=== PATIENT | female | born 1965 | race Caucasian/White ===

== ENCOUNTER 2016-11-12 20:33 | Emergency (ER) | payer SELFPAY ==
[2016-11-12] MEDS ORDERED: Ibuprofen 800 MG TAB ONE (21:02)
--- NOTE | 2016-11-12 21:36 | ERRECORD ---
[facility] EMERGENCY RECORD HPI GENERAL (20:57 LHOD) CHIEF COMPLAINT: Patient presents for evaluation of LOW BACK STRAIN AND SWELLING BEHIND LEFT KNEE. HISTORIAN: History provided by patient. TIME COURSE: PT REPORTS SHE LIFTS PATIENTS AND FREQUENTLY HAS LOW BACK PAINS, BUT CAME IN TONIGHT SINCE SHE NOTED A SWELLING BEHIND HER LEFT KNEE FOR THE PAST MONTH. SHE HAD A FAMILY MEMBER IN HER HOME THIS PAST WEEK, AND REPORTS SHE FEELS STRESSED. ROS (20:59 LHOD) CONSTITUTIONAL: Historian denies fever. CARDIOVASCULAR: Historian denies chest pain. RESPIRATORY: Historian denies shortness of breath. GI: Historian denies abdominal pain, denies nausea, denies vomiting. MUSCULOSKELETAL: Historian reports back pain, denies neck pain, reports spasms. SWELLING BEHIND LEFT KNEE. SKIN: Historian denies rash. NEUROLOGIC: Historian denies focal weakness, denies headache. HEMO/LYMPHATIC: Historian denies easy bruising. NOTES: All systems reviewed, negative except as described above. PAST MEDICAL HISTORY MEDICAL HISTORY: Flu vaccine not up to date, Tetanus immunization up to date, Date of immunization: 2012, Pneumococcal vaccine not up to date, SKIN CANCER REMOVED FROM TIP OF NOSE, Past medical history includes pulmonary disease, chronic bronchitis, ALLERGIES. VERIFIED 07/24/15-EER. VERIFIED 11-12-16. (21:09 MCRS) FEMALE SURGICAL HISTORY: nasal, Surgical history of tubal ligation. VERIFIED 07/24/15. VERIFIED 1. (21:09 MCRS) PSYCHIATRIC HISTORY: Psychiatric history includes, anxiety, Psychiatric history includes patient currently being under outpatient treatment. VERIFIED 11-12-16. (21:09 MCRS) SOCIAL HISTORY: Patient denies alcohol use, Patient denies drug use, Patient currently uses tobacco, smokes cigarettes, daily, Patient has smoked for 30 years, Patient smokes 1/2 packs per day, CUTTING BACK, Patient denies alcohol use, Patient denies drug use, Patient currently uses tobacco, smokes cigarettes, daily, Patient smokes 1 pack per day, Patient denies alcohol use, Patient denies drug use, Patient currently uses tobacco, smokes cigarettes, daily, Patient smokes 1 pack per day, Patient denies alcohol use, Patient denies drug use, Patient currently uses tobacco, smokes cigarettes, daily, Patient has smoked for 20 years, Patient smokes 1 pack per day, Lives at home, with family. (21:09 MCRS) FAMILY HISTORY: Family history includes malignancy, mother. (21:09 MCRS) NOTES: Nursing records reviewed, PT REPORTS HX OF BACK PAINS. I &a-1R&a+25V*p+0X*d6763S*c202B*c15G*c2P*p-0X&a-25V&a+1R Name: Jessica Rouse : 1965 F51 MedRec: [id number] AcctNum: [id number] Prepared: [facility] Nov 12, 2016 22:24 by Interface Page 1 of 3 pMD [facility] EMERGENCY RECORD PRESCRIBED ROBAXIN FOR HER PREVIOUSLY WHICH SHE REPORTS WORKED WELL ON HER MUSCLE SPASMS. (21:05 LHOD) KNOWN ALLERGIES codeine sulfate (Unconfirmed): Reaction: Nausea, Severity: Severe, Source: Patient CURRENT MEDICATIONS No recorded medications VITAL SIGNS VITAL SIGNS: BP: 136/62 (Sitting), Pulse: 98, Resp: 22, Temp: 98.9 (Tympanic), Pain: 6 (Radiating), O2 sat: 95 on Room Air, Time: 11/12/2016 20:40. (20:40 MCRS) BP: 163/93, Pulse: 89, Resp: 22, Temp: 98.5, Pain: 5, O2 sat: 96 on RA, Time: 11/12/2016 21:15. (21:15 MCRS) PHYSICAL EXAM (21:00 LHOD) CONSTITUTIONAL: Vital signs reviewed, Patient afebrile, Pulse normal, Blood pressure normal, Respiratory rate normal, Patient alert and oriented to person, place and time. NECK: Neck exam included findings of normal range of motion, Trachea midline. RESPIRATORY CHEST: Respiratory exam included findings of no respiratory distress, Breath sounds clear. CARDIOVASCULAR: Cardiovascular exam included findings of heart rate regular rate and rhythm, Heart sounds normal. ABDOMEN FEMALE: Abdominal exam included findings of abdomen nontender, Distension present. BACK: Tenderness, paraspinal to the lower back, no pain with straight leg raise. LOWER EXTREMITY: LEFT KNEE----POPLITEAL REGION WITH MODERATE SWELLING. NO EVIDENCE OF POPLITEAL ANEURYSM OR SEPTIC JOINT. NO ERYTHEMA OR STREAKING. LEFT LEG POPLITEAL CYST WITHOUT EVIDENCE OF DVT / TENDERNESS. NEURO: Neuro exam findings include patient oriented to person, place and time, Speech normal. SKIN: no rash. MEDICATION ADMINISTRATION SUMMARY Drug Name: ibuprofen, Dose Ordered: 800 mg, Route: Oral, Status: Ordered, Time: 20:54 11/12/2016, Detailed record available in Medication Service section. PROBLEM LIST No recorded problems DIAGNOSIS (20:55 LHOD) FINAL: PRIMARY: LUMBAR STRAIN WITH MUSCLE SPASM, &a-1R&a+25V*p+0X*u9578S*c202B*c15G*c2P*p-0X&a-25V&a+1R Name: Jessica Rouse : 1965 F51 MedRec: [id number] AcctNum: [id number] Prepared: Pat Nov 12, 2016 22:24 by Interface Page 2 of 3 pMD [facility] EMERGENCY RECORD ADDITIONAL: LEFT POPLITEAL CHAMBERLAIN'S CYST. PRESCRIPTION (20:55 LHOD) Robaxin oral: TABLET : 750 mg : ORAL : Quantity: 1 Unit: tab(s) Route: ORAL Schedule: every 6 hours PRN Dispense: 16 May substitute. Refills: 1 . NOTES: No Refills. DISPOSITION PATIENT: Disposition Type: Discharge, Disposition: *Discharge Home, Condition: Good. (20:55 LHOD) Disposition Transport: Car. (21:29 MCRS) Patient left the department. (21:29 MCRS) Britton: LHOD=MD Bishop, John MCRS=RIGO Menon, Ayan &a-1R&a+25V*p+0X*f2007D*c202B*c15G*c2P*p-0X&a-25V&a+1R Name: Jessica Rouse : 1965 F51 MedRec: [id number] AcctNum: [id number] Prepared: [facility] Nov 12, 2016 22:24 by Interface Page 3 of 3 pMD MTDD
--- NOTE | 2016-11-12 21:43 | PICIS ---
[facility] EMERGENCY RECORD TRIAGE (20:45 MCRS) TRIAGE NOTES: KNOT ON BACK OF LEFT LEG WITHOUT PAIN - ALSO HAVING LOWER BACK PAIN WITH SPASM RADIATES DOWN BACK OF BOTH LEGS - KNOT PRESENT X1 MONTH - SPASM OFF AND ON FOR 1 YEAR - PATIENT CRYING DUE TO PERSONAL EVENT WITH FAMILY. (20:45 MCRS) PATIENT: NAME: Jessica Rouse, AGE: 51, GENDER: female, : Sun 1965, TIME OF GREET: Pat Nov 12, 2016 20:34, PREFERRED LANGUAGE: Montserratian, ETHNICITY: Not or , FALL RISK: NO, ECODE BILLING MAP: [facility], SSN: [id number], Zip Code: [address], KG WEIGHT: [phone], PHONE: CELL, , , PERSON ID: [id number], PCP: MD García Grover. (20:45 MCRS) COMPLAINT: KNOT TO BACK OF LEFT LEG AND BACK PAIN WITH SPASMS. (20:45 MCRS) ADMISSION: URGENCY: 4 Non Urgent, ADMISSION SOURCE: Home, TRANSPORT: CAR, BED: ED -04. (20:45 MCRS) ASSESSMENT: Assessment: PAIN LOWER BACK WITH SPASM - KNOT BACK OF LEFT LEG, Symptoms began 1 YEAR AGO. (21:09 MCRS) PAIN: Pain is intermittent. (21:09 MCRS) IMMUNIZATIONS: Flu vaccine not up to date, Tetanus immunization up to date, Date of immunization: 2012, Pneumococcal vaccine not up to date. (21:09 MCRS) SIRS SCORING: Heart Rate 55-109 (0), Temp range 96.8-101.1 (0), respiratory rate 12-24 (0), Mental Status altered: no (0), Infection or Suspected Infection: No. (21:09 MCRS) PROVIDERS: TRIAGE NURSE: Ayan Menon RN. (20:45 MCRS) VITAL SIGNS: BP 136/62, (Sitting), Pulse 98, Resp 22, Temp 98.9, (Tympanic), Pain 6, (Radiating), O2 Sat 95, on Room Air, Time 11/12/2016 20:40. (20:40 MCRS) PREVIOUS VISIT ALLERGIES: codeine sulfate. (20:45 MCRS) codeine sulfate. (21:09 MCRS) KNOWN ALLERGIES codeine sulfate (Unconfirmed): Reaction: Nausea, Severity: Severe, Source: Patient CURRENT MEDICATIONS No recorded medications VITAL SIGNS VITAL SIGNS: BP: 136/62 (Sitting), Pulse: 98, Resp: 22, Temp: 98.9 (Tympanic), Pain: 6 (Radiating), O2 sat: 95 on Room Air, Time: 11/12/2016 20:40. (20:40 MCRS) BP: 163/93, Pulse: 89, Resp: 22, Temp: 98.5, Pain: 5, O2 sat: 96 on RA, Time: 11/12/2016 21:15. (21:15 MCRS) NURSING ASSESSMENT: HEAD-TO-TOE (21:09 MCRS) CONSTITUTIONAL: Patient arrives ambulatory, Gait steady, History obtained from patient, Patient appears comfortable, Patient cooperative, Patient alert, Oriented to person, place and time, Skin &a-1R&a+25V*p+0X*e8744I*c202B*c15G*c2P*p-0X&a-25V&a+1R Name: Jessica Rouse : 1965 F51 MedRec: [id number] AcctNum: [id number] Prepared: Pat Nov 12, 2016 22:30 by Interface Page 1 of 5 pMD [facility] EMERGENCY RECORD warm, Skin dry, Skin normal in color, Mucous membranes pink, Mucous membranes moist, Patient is well-groomed, Patient complains of JULIO C N LOWER BACK AND KNOT ON BACK OF LEFT LEG. PAIN: aching pain, Onset of pain 1 YEAR OFF AND ON, on a scale 0-10 patient rates pain as 5, Pain exacerbated by, ambulation, exercise, Nothing has been tried to alleviate the pain. NONVERBAL PAIN: Non-Verbal complaints present with movement (1). LEFT LOWER EXTREMITY: Left lower extremity assessment findings include capillary refill less than 2 seconds, Skin color normal, Skin temperature warm, Distal sensation intact, Muscle tone normal, muscle strength 5, no edema present, Notes: BILAT LEGS EQUAL SIZE AND STRENGTH. SAFETY: Side rails up, Cart/Stretcher in lowest position, Family at bedside, Call light within reach, Hospital ID band on. NURSING PROCEDURE: DISCHARGE NOTE (21:15 MCRS) DISCHARGE: Patient discharged to home, ambulating without assistance, family driving, accompanied by other family member, Summary of Care printed/ provided, Patient requested and was provided an electronic copy of Discharge Instructions, Transition record given to patient, Discharge instructions given to patient, Simple or moderate discharge teaching performed, DISCHARGE INSTRUCTIONS, Prescriptions given and instructions on side effects given, Name of prescription(s) given: ROBAXIN, Medication reconciliation form given, Above person(s) verbalized understanding of discharge instructions and follow-up care, Patient treated and evaluated by physician. BELONGINGS: Valuables remain with patient. VITAL SIGNS: BP: 163, / 93, Pulse: 89, Resp: 22, Temp: 98.5, Pain: 5, O2 sat: 96, on: RA, Time: 2116. MEDICATION ADMINISTRATION SUMMARY Drug Name: ibuprofen, Dose Ordered: 800 mg, Route: Oral, Status: Ordered, Time: 20:54 11/12/2016, Detailed record available in Medication Service section. MEDICATION SERVICE ibuprofen: Order: ibuprofen - Dose: 800 mg : Oral Ordered by: John Alas MD Entered by: John Alas MD [facility] Nov 12, 2016 20:54 , Acknowledged by: Ayan Menon RN [facility] Nov 12, 2016 21:01. : Follow Up : Response assessment performed, No signs or symptoms of allergic reaction noted, No change in pain. (21:19 MCRS) HPI GENERAL (20:57 LHOD) CHIEF COMPLAINT: Patient presents for evaluation of LOW BACK STRAIN AND SWELLING BEHIND LEFT KNEE. &a-1R&a+25V*p+0X*f5292G*c202B*c15G*c2P*p-0X&a-25V&a+1R Name: Jessica Rouse : 1965 F51 MedRec: [id number] AcctNum: [id number] Prepared: Pat Nov 12, 2016 22:30 by Interface Page 2 of 5 pMD [facility] EMERGENCY RECORD HISTORIAN: History provided by patient. TIME COURSE: PT REPORTS SHE LIFTS PATIENTS AND FREQUENTLY HAS LOW BACK PAINS, BUT CAME IN TONIGHT SINCE SHE NOTED A SWELLING BEHIND HER LEFT KNEE FOR THE PAST MONTH. SHE HAD A FAMILY MEMBER IN HER HOME THIS PAST WEEK, AND REPORTS SHE FEELS STRESSED. ROS (20:59 LHOD) CONSTITUTIONAL: Historian denies fever. CARDIOVASCULAR: Historian denies chest pain. RESPIRATORY: Historian denies shortness of breath. GI: Historian denies abdominal pain, denies nausea, denies vomiting. MUSCULOSKELETAL: Historian reports back pain, denies neck pain, reports spasms. SWELLING BEHIND LEFT KNEE. SKIN: Historian denies rash. NEUROLOGIC: Historian denies focal weakness, denies headache. HEMO/LYMPHATIC: Historian denies easy bruising. NOTES: All systems reviewed, negative except as described above. PAST MEDICAL HISTORY MEDICAL HISTORY: Flu vaccine not up to date, Tetanus immunization up to date, Date of immunization: 2012, Pneumococcal vaccine not up to date, SKIN CANCER REMOVED FROM TIP OF NOSE, Past medical history includes pulmonary disease, chronic bronchitis, ALLERGIES. VERIFIED 07/24/15-EER. VERIFIED 11-12-16. (21:09 MCRS) FEMALE SURGICAL HISTORY: nasal, Surgical history of tubal ligation. VERIFIED 07/24/15. VERIFIED 11-12-16. (21:09 MCRS) PSYCHIATRIC HISTORY: Psychiatric history includes, anxiety, Psychiatric history includes patient currently being under outpatient treatment. VERIFIED 17. (21:09 MCRS) SOCIAL HISTORY: Patient denies alcohol use, Patient denies drug use, Patient currently uses tobacco, smokes cigarettes, daily, Patient has smoked for 30 years, Patient smokes 1/2 packs per day, CUTTING BACK, Patient denies alcohol use, Patient denies drug use, Patient currently uses tobacco, smokes cigarettes, daily, Patient smokes 1 pack per day, Patient denies alcohol use, Patient denies drug use, Patient currently uses tobacco, smokes cigarettes, daily, Patient smokes 1 pack per day, Patient denies alcohol use, Patient denies drug use, Patient currently uses tobacco, smokes cigarettes, daily, Patient has smoked for 20 years, Patient smokes 1 pack per day, Lives at home, with family. (21:09 MCRS) FAMILY HISTORY: Family history includes malignancy, mother. (21:09 MCRS) NOTES: Nursing records reviewed, PT REPORTS HX OF BACK PAINS. I PRESCRIBED ROBAXIN FOR HER PREVIOUSLY WHICH SHE REPORTS WORKED WELL ON HER MUSCLE SPASMS. (21:05 LHOD) &a-1R&a+25V*p+0X*b0969A*c202B*c15G*c2P*p-0X&a-25V&a+1R Name: Jessica Rouse : 1965 F51 MedRec: [id number] AcctNum: [id number] Prepared: WedNov 12, 2016 22:30 by Interface Page 3 of 5 pMD [facility] EMERGENCY RECORD PHYSICAL EXAM (21:00 LHOD) CONSTITUTIONAL: Vital signs reviewed, Patient afebrile, Pulse normal, Blood pressure normal, Respiratory rate normal, Patient alert and oriented to person, place and time. NECK: Neck exam included findings of normal range of motion, Trachea midline. RESPIRATORY CHEST: Respiratory exam included findings of no respiratory distress, Breath sounds clear. CARDIOVASCULAR: Cardiovascular exam included findings of heart rate regular rate and rhythm, Heart sounds normal. ABDOMEN FEMALE: Abdominal exam included findings of abdomen nontender, Distension present. BACK: Tenderness, paraspinal to the lower back, no pain with straight leg raise. LOWER EXTREMITY: LEFT KNEE----POPLITEAL REGION WITH MODERATE SWELLING. NO EVIDENCE OF POPLITEAL ANEURYSM OR SEPTIC JOINT. NO ERYTHEMA OR STREAKING. LEFT LEG POPLITEAL CYST WITHOUT EVIDENCE OF DVT / TENDERNESS. NEURO: Neuro exam findings include patient oriented to person, place and time, Speech normal. SKIN: no rash. EVENTS TRANSFER: Triage to Emergency Main ED -04. (Pat Nov 12, 2016 20:45 MCRS) Removed from Emergency Main ED -04. (21:29 MCRS) PROBLEM LIST No recorded problems DIAGNOSIS (20:55 LHOD) FINAL: PRIMARY: LUMBAR STRAIN WITH MUSCLE SPASM, ADDITIONAL: LEFT POPLITEAL CHAMBERLAIN'S CYST. DISPOSITION PATIENT: Disposition Type: Discharge, Disposition: *Discharge Home, Condition: Good. (20:55 LHOD) Disposition Transport: Car. (21:29 MCRS) Patient left the department. (21:29 MCRS) INSTRUCTION (20:56 LHOD) DISCHARGE: LUMBAR MUSCLE SPASM, CHAMBERLAIN'S CYST. FOLLOWUP: MD Ricky, Adrian, [facility], [address] [place] [id number], , Follow up with Primary Care Physician as scheduled. SPECIAL: MOIST HEAT TO MUSCLES OF BACK. COOL COMPRESS OF LEFT KNEE AND ELEVATE. IBUPROFEN 600-800 MG EVERY 6 HOURS TOLERATED. Follow-up with your PCP *RETURN IF WORSE. &a-1R&a+25V*p+0X*t0119H*c202B*c15G*c2P*p-0X&a-25V&a+1R Name: Jessica Rouse : 1965 F51 MedRec: [id number] AcctNum: [id number] Prepared: Pat Nov 12, 2016 22:30 by Interface Page 4 of 5 pMD [facility] EMERGENCY RECORD PRESCRIPTION (20:55 LHOD) Robaxin oral: TABLET : 750 mg : ORAL : Quantity: 1 Unit: tab(s) Route: ORAL Schedule: every 6 hours PRN Dispense: 16 May substitute. Refills: 1 . NOTES: No Refills. IMAGING *SUPPLY CHARGE SHEET: Image captured from scanner. (21:27 MCRS) *DISCHARGE INSTRUCTIONS RECEIPT: Image captured from scanner. (21:28 MCRS) Page 2 added. Image captured from scanner. (21:28 MCRS) ADMIN DIGITAL SIGNATURE: RIGO Menon, Ayan. (21:29 MCRS) RIGO Menon Mikel. (21:29 MCRS) MD Alas Lefayne. (22:22 LHOD) Britton: LHOD=MD Alas Lefayne MCRS=RIGO Menon Mikel &a-1R&a+25V*p+0X*f1968C*c202B*c15G*c2P*p-0X&a-25V&a+1R Name: Jessica Rouse : 1965 F51 MedRec: [id number] AcctNum: [id number] Prepared: Pat Nov 12, 2016 22:30 by Interface Page 5 of 5 pMD MTDD
== END 2016-11-12 21:25 | disposition home or self-care (01) ==
LOC: MADERS 20:33
DX: S39.012A Strain of muscle, fascia and tendon of lower back, initial encounter (principal); M62.830 Muscle spasm of back; M71.22 Synovial cyst of popliteal space [Baker], left knee; F41.9 Anxiety disorder, unspecified; F17.210 Nicotine dependence, cigarettes, uncomplicated
CPT/HCPCS: 99283

== ENCOUNTER 2017-01-22 16:40 | Emergency (ER) | payer SELFPAY ==
[2017-01-22] MEDS ORDERED: HYDROcodone/Acetaminophen 10/325 mg Tablet ONE (17:15)
[2017-01-22] MEDS ORDERED: Naproxen 500 MG TAB ONE (17:15)
--- NOTE | 2017-01-22 17:55 | RAD ---
LEFT ANKLE THREE VIEWS 01/22/17 HISTORY: Fall. Left ankle injury. COMPARISON: 05/05/16. FINDINGS: Mild osteophytosis is again demonstrated. Ankle mortise is intact. Degenerative changes midfoot and hindfoot are similar in appearance to the prior exam. No acute fracture or dislocation are apparent . IMPRESSION: Chronic type findings appear stable. No acute osseous abnormalities are demonstrated. POS: [facility]
--- NOTE | 2017-01-22 17:56 | RAD ---
LEFT KNEE FOUR VIEWS 01/22/17 HISTORY: Fall. Left knee injury. COMPARISON: 05/05/16. FINDINGS: Joint spaces are preserved. Mild tricompartmental osteophytosis is present. There is no acute fractu re or dislocation. Fluid distention of the suprapatellar bursa is apparent on the lateral view. IMPRESSION: Joint effusion suggests internal derangement or may be related to degenerative changes. No acute oss eous abnormalities are demonstrated. POS: [facility]
--- NOTE | 2017-01-22 17:57 | RAD ---
LUMBAR SPINE TWO VIEWS 01/22/17 HISTORY: Fall. Low back pain. COMPARISON: 06/28/14. FINDINGS: There are five lumbar type vertebrae. Pedicles are intact. Vertebral body heights and alignment are maintained. Osteophytosis is present throughout the vertebral bodies and facets. IMPRESSION: Lumbar spondylosis. No evidence of compression injury. POS: [facility]
== END 2017-01-22 18:09 | disposition home or self-care (01) ==
LOC: MADERS 16:40
DX: S99.912A Unspecified injury of left ankle, initial encounter (principal); S89.92XA Unspecified injury of left lower leg, initial encounter; S39.92XA Unspecified injury of lower back, initial encounter; F41.9 Anxiety disorder, unspecified; F17.210 Nicotine dependence, cigarettes, uncomplicated; Z79.899 Other long term (current) drug therapy; W19.XXXA Unspecified fall, initial encounter
CPT/HCPCS: 72100

== ENCOUNTER 2017-04-29 20:06 | Emergency (ER) | payer SELFPAY ==
[2017-04-29] MEDS ORDERED: Ibuprofen 800 MG TAB ONE (20:30)
== END 2017-04-29 20:35 | disposition home or self-care (01) ==
LOC: MADERS 20:06
DX: M54.40 Lumbago with sciatica, unspecified side (principal); M71.22 Synovial cyst of popliteal space [Baker], left knee; M17.12 Unilateral primary osteoarthritis, left knee; J42 Unspecified chronic bronchitis; F41.9 Anxiety disorder, unspecified; F17.210 Nicotine dependence, cigarettes, uncomplicated
CPT/HCPCS: 99283

== ENCOUNTER 2017-09-08 19:34 | Emergency (ER) | payer SELFPAY ==
[2017-09-08] MEDS ORDERED: Ketorolac Tromethamine 30 MG/ML VIAL ONE (20:30)
== END 2017-09-08 20:53 | disposition home or self-care (01) ==
LOC: MADERS 19:34
DX: M17.11 Unilateral primary osteoarthritis, right knee (principal); J42 Unspecified chronic bronchitis; F41.9 Anxiety disorder, unspecified; F17.210 Nicotine dependence, cigarettes, uncomplicated; Z79.899 Other long term (current) drug therapy
CPT/HCPCS: 96372; 99406; J1885

== ENCOUNTER 2017-12-24 18:11 | Emergency (ER) | payer SELFPAY ==
[2017-12-24] MEDS ORDERED: Naproxen 500 MG TAB ONE (19:26)
[2017-12-24] MEDS ORDERED: AMOXicillin 250 MG CAP ONE (19:26)
[2017-12-24] MEDS ORDERED: HYDROcodone/Acetaminophen 10/325 mg Tablet ONE (19:26)
== END 2017-12-24 19:39 | disposition home or self-care (01) ==
LOC: MADERS 18:11
DX: K04.7 Periapical abscess without sinus (principal); K02.9 Dental caries, unspecified; K03.81 Cracked tooth; F41.9 Anxiety disorder, unspecified; F17.210 Nicotine dependence, cigarettes, uncomplicated; Z79.899 Other long term (current) drug therapy; Z85.828 Personal history of other malignant neoplasm of skin
CPT/HCPCS: 99283

== ENCOUNTER 2018-01-03 10:42 | Emergency (ER) | payer SELFPAY ==
[2018-01-03 11:51] LABS: ALT (SGPT) 21 U/L (8-55); AST (SGOT) 14 U/L (5-34); Albumin 4.1 g/dL (3.5-5.0); Alkaline Phosphatase 99 U/L (40-150); Anion Gap 14 mmol/L (10-20); BUN (Urea Nitrogen) 7 mg/dL (9.8-20.1); Bilirubin, Total 0.4 mg/dL (0.2-1.2); Calc. Creatinine Clearance 0 mL/min (70-130); Calcium 9.3 mg/dL (7.8-10.44); Carbon Dioxide 29 mmol/L (22-29); Chloride 103 mmol/L (98-107); Estimated GFR-MDRD 84; Globulin 3.2 g/dL (2.4-3.5); Glucose 103 mg/dL (70-105); Protein, Total 7.3 g/dL (6.0-8.3); Sodium 142 mmol/L (136-145)
[2018-01-03 12:56] LABS: Mean Corpuscular HGB CONC 32.4 g/dL (32.0-36.0); Mean Corpuscular Hemoglobin 28.2 pg (27.0-31.0); Mean Corpuscular Volume 86.9 fL (81.0-99.0); Platelet Count 252 thou/uL (130-400); RBC Distribution Width 11.9 % (11.5-14.5); Red Blood Cell (RBC) Count 5.31 mill/uL (4.20-5.40); White Blood Cell (WBC) Count 7.2 thou/uL (4.8-10.8)
[2018-01-03 12:57] LABS: #Basophils 0.1 thou/uL (0.0-0.2); #Eosinphils 0.2 thou/uL (0.0-0.7); #Lymphocytes 2.4 thou/uL (1.20-3.40); #Monocytes 0.4 thou/uL (0.11-0.59); #Neutrophils 4.1 thou/uL (1.40-6.50); %Eosinophils 2.5 % (0.0-10.0); %Lymphocytes 32.1 % (21.0-51.0); %Monocytes 5.8 % (0.0-10.0); %Neutrophils 57.7 % (42.0-75.0)
== END 2018-01-03 13:08 | disposition home or self-care (01) ==
LOC: MADERS 10:42
DX: Z00.00 Encounter for general adult medical examination without abnormal findings (principal); J42 Unspecified chronic bronchitis; F41.9 Anxiety disorder, unspecified; F17.210 Nicotine dependence, cigarettes, uncomplicated; G89.29 Other chronic pain
CPT/HCPCS: 36415; 80053; 84443; 85025; 99283

== ENCOUNTER 2018-01-10 02:34 | Emergency (ER) | payer SELFPAY ==
[2018-01-10 03:25] LABS: Bilirubin Negative (Negative); Blood, Urine Trace (Negative); Glucose, Urine (Dipstick) Negative (Negative); Leukocyte Trace (Negative); Nitrite Negative (Negative); Protein, Urine (Dipstick) Negative (Neg-Trace); Urobilinogen 0.2 mg/dL (0.2-1.0)
[2018-01-10 03:36] LABS: Specific Gravity, Urine 1.006 (1.002-1.036)
[2018-01-10 03:37] LABS: Amphetamine Not Detected (NotDetected); Bacteria/HPF 2+ HPF (None Seen); Barbiturates Screen Not Detected (NotDetected); Benzodiazepine Screen Not Detected (NotDetected); Clarity Hazy (Clear); Cocaine Metabolite Screen Not Detected (NotDetected); Medtox Control Line Valid? VALID (VALID); Methadone Not Detected (NotDetected); Methamphetamine Not Detected (NotDetected); Opiate Screen Not Detected (NotDetected); Oxycodone Screen Not Detected (NotDetected); Phencyclidine (PCP) Not Detected (NotDetected); THC/Cannabinoid Screen Not Detected (NotDetected); Tricyclic Screen Not Detected (NotDetected)
[2018-01-10] MEDS ORDERED: ALPRAZolam 0.25 MG TAB ONE (04:03)
[2018-01-10] MEDS ORDERED: Sulfameth/Trimethoprim DS 800-160mg TAB ONE (04:23)
[2018-01-10] MEDS ORDERED: Naproxen 500 MG TAB ONE (04:23)
== END 2018-01-10 04:30 | disposition home or self-care (01) ==
LOC: MADERS 02:34
DX: F43.9 Reaction to severe stress, unspecified (principal); N39.0 Urinary tract infection, site not specified; J42 Unspecified chronic bronchitis; G89.29 Other chronic pain; F17.210 Nicotine dependence, cigarettes, uncomplicated; Z79.899 Other long term (current) drug therapy
CPT/HCPCS: 80306; 81001; 87086; 99283

== ENCOUNTER 2018-03-10 13:58 | Emergency (ER) | payer SELFPAY ==
[2018-03-10] MEDS ORDERED: Naproxen 500 MG TAB ONE (14:24)
[2018-03-10] MEDS ORDERED: AMOXicillin 250 MG CAP ONE (14:24)
== END 2018-03-10 14:44 | disposition home or self-care (01) ==
LOC: MADERS 13:58
DX: K03.81 Cracked tooth (principal); K02.9 Dental caries, unspecified; K04.7 Periapical abscess without sinus; G89.29 Other chronic pain; M54.9 Dorsalgia, unspecified; F17.210 Nicotine dependence, cigarettes, uncomplicated; J42 Unspecified chronic bronchitis; Z79.899 Other long term (current) drug therapy
CPT/HCPCS: 99282

== ENCOUNTER 2018-05-01 18:36 | Emergency (ER) | payer SELFPAY ==
[2018-05-01 19:04] LABS: Bilirubin Negative (Negative); Blood, Urine Negative (Negative); Clarity Clear (Clear); Glucose, Urine (Dipstick) Negative (Negative); Leukocyte Negative (Negative); Nitrite Negative (Negative); Protein, Urine (Dipstick) Negative (Neg-Trace); Urobilinogen 0.2 mg/dL (0.2-1.0)
[2018-05-01] MEDS ORDERED: HYDROcodone/Acetaminophen 10/325 mg Tablet ONE (19:19)
== END 2018-05-01 19:47 | disposition home or self-care (01) ==
LOC: MADERS 18:36
DX: M54.5 Low back pain (principal)
CPT/HCPCS: 81003; 99283

== ENCOUNTER 2018-06-28 17:59 | Emergency (ER) | payer SELFPAY ==
[2018-06-28] MEDS ORDERED: Ibuprofen 800 MG TAB ONE (18:22)
[2018-06-28] MEDS ORDERED: HYDROcodone/Acetaminophen 5/325 mg Tablet ONE (18:22)
== END 2018-06-28 18:25 | disposition home or self-care (01) ==
LOC: MADERS 17:59
DX: S86.812A Strain of other muscle(s) and tendon(s) at lower leg level, left leg, initial encounter (principal); F17.210 Nicotine dependence, cigarettes, uncomplicated; F41.9 Anxiety disorder, unspecified; Z79.899 Other long term (current) drug therapy; X50.1XXA Overexertion from prolonged static or awkward postures, initial encounter
CPT/HCPCS: 99283

== ENCOUNTER 2018-10-28 19:04 | Emergency (ER) | payer SELFPAY ==
[2018-10-28] MEDS ORDERED: Ibuprofen 600 MG TAB ONE (20:02)
--- NOTE | 2018-10-28 20:12 | CT ---
HEAD CT WITHOUT CONTRAST: 10/28/18 HISTORY: Pain. Injury. COMPARISON: None. FINDINGS: No parenchymal hemorrhage. No extra-axial hematoma. No midline shift. Basilar cisterns are patent. Br ain volume, age appropriate. Cortical doty-white matter differentiation preserved. No evidence of hydrocephalus. Calvarium is intact. Adequate aeration of the sinuses and mastoid air cells. IMPRESSION: No intracranial posttraumatic sequela. POS: [facility]
== END 2018-10-28 20:00 | disposition home or self-care (01) ==
LOC: MADERS 19:04
DX: S00.03XA Contusion of scalp, initial encounter (principal); F41.9 Anxiety disorder, unspecified; F17.210 Nicotine dependence, cigarettes, uncomplicated; Z79.899 Other long term (current) drug therapy; W22.8XXA Striking against or struck by other objects, initial encounter
CPT/HCPCS: 70450

== ENCOUNTER 2019-08-19 12:00 | Emergency (ER) | payer SELFPAY ==
[2019-08-19] MEDS ORDERED: Ibuprofen 800 MG TAB ONE ×2 (12:50→12:53)
[2019-08-19] MEDS ORDERED: Acetaminophen 325 MG TAB ONE (12:50)
[2019-08-19] MEDS ORDERED: Clindamycin 150 MG CAP ONE (12:50)
[2019-08-19] MEDS ORDERED: HYDROcodone/Acetaminophen 5/325 mg Tablet ONE (12:50)
== END 2019-08-19 12:58 | disposition home or self-care (01) ==
LOC: MADERS 12:00
DX: K04.7 Periapical abscess without sinus (principal); K02.9 Dental caries, unspecified; F41.9 Anxiety disorder, unspecified; F17.210 Nicotine dependence, cigarettes, uncomplicated; Z79.899 Other long term (current) drug therapy
CPT/HCPCS: 99282

== ENCOUNTER 2021-07-09 19:32 | Emergency (ER) | payer OTHER, SELFPAY | END 2021-07-09 22:23 | disposition home or self-care (01) | LOC: MADERS 19:32 | DX: S09.90XA Unspecified injury of head, initial encounter (principal); S13.4XXA Sprain of ligaments of cervical spine, initial encounter; J42 Unspecified chronic bronchitis; F17.210 Nicotine dependence, cigarettes, uncomplicated; V43.62XA Car passenger injured in collision with other type car in traffic accident, initial encounter; Y92.410 Unspecified street and highway as the place of occurrence of the external cause | CPT/HCPCS: 70450; 72125 ==

== ENCOUNTER 2022-03-13 21:22 | Emergency (ER) | payer BC, SELFPAY ==
[2022-03-13 23:40] LABS: #Basophils 0.1 thou/uL (0.0-0.2); #Eosinphils 0.3 thou/uL (0.0-0.7); #Lymphocytes 3.6 thou/uL (1.20-3.40); #Monocytes 0.5 thou/uL (0.11-0.59); #Neutrophils 5.1 thou/uL (1.40-6.50); %Basophils 1.5 % (0.0-1.0); %Eosinophils 2.7 % (0.0-10.0); %Lymphocytes 37.8 % (21.0-51.0); %Monocytes 5.2 % (0.0-10.0); %Neutrophils 52.8 % (42.0-75.0); Hemoglobin 16.8 g/dL (12.0-16.0); Mean Corpuscular HGB CONC 31.9 g/dL (32.0-36.0); Mean Corpuscular Hemoglobin 27.4 pg (27.0-31.0); Mean Platelet Volume 10.2 fL (7.4-10.4); Platelet Count 231 thou/uL (130-400); RBC Distribution Width 12.8 % (11.5-14.5); Red Blood Cell (RBC) Count 6.12 mill/uL (4.20-5.40); White Blood Cell (WBC) Count 9.6 thou/uL (4.8-10.8)
[2022-03-13 23:59] LABS: ALT (SGPT) 42 U/L (8-55); AST (SGOT) 40 U/L (5-34); Albumin 4.1 g/dL (3.5-5.0); Alkaline Phosphatase 110 U/L (40-110); Anion Gap 16 mmol/L (10-20); BUN (Urea Nitrogen) 8 mg/dL (9.8-20.1); Bilirubin, Total 0.5 mg/dL (0.2-1.2); Calc. Creatinine Clearance 0 mL/min (70-130); Calcium 9.7 mg/dL (7.8-10.44); Carbon Dioxide 31 mmol/L (22-29); Chloride 100 mmol/L (98-107); Globulin 3.7 g/dL (2.4-3.5); Glucose 93 mg/dL (70-105); Potassium 4.1 mmol/L (3.5-5.1); Protein, Total 7.8 g/dL (6.0-8.3); Sodium 143 mmol/L (136-145)
== END 2022-03-14 00:24 | disposition home or self-care (01) ==
LOC: MADERS 21:22
DX: R60.0 Localized edema (principal); I87.2 Venous insufficiency (chronic) (peripheral); F17.210 Nicotine dependence, cigarettes, uncomplicated; Z79.899 Other long term (current) drug therapy
CPT/HCPCS: 36415; 71046; 80053; 83880; 84484; 85025; 93005

== ENCOUNTER 2022-08-02 23:07 | Emergency (ER) | payer BC ==
[2022-08-02] MEDS ORDERED: Cephalexin 500 MG CAP ONE (23:37)
[2022-08-02] MEDS ORDERED: Ibuprofen 800 MG TAB ONE (23:37)
== END 2022-08-02 23:40 | disposition home or self-care (01) ==
LOC: MADERS 23:07
DX: K04.7 Periapical abscess without sinus (principal); F17.210 Nicotine dependence, cigarettes, uncomplicated; Z79.899 Other long term (current) drug therapy
CPT/HCPCS: 99282

== ENCOUNTER 2022-09-06 23:27 | Emergency (ER) | payer BC ==
[2022-09-07] MEDS ORDERED: Lidocaine 1% (PF) 30 ML VIAL ONE (00:24)
== END 2022-09-07 01:13 | disposition home or self-care (01) ==
LOC: MADERS 23:27
DX: L02.219 Cutaneous abscess of trunk, unspecified (principal); L60.0 Ingrowing nail; F17.210 Nicotine dependence, cigarettes, uncomplicated; Z79.899 Other long term (current) drug therapy
CPT/HCPCS: 10060; 11765; 87070; 87077; 87205; J2001

== ENCOUNTER 2022-10-31 08:44 | Emergency (ER) | payer BC ==
[2022-10-31] MEDS ORDERED: Amoxicillin/Potassium Clav 875 MG TAB ONE (10:43)
[2022-10-31] MEDS ORDERED: predniSONE 20 MG TAB ONE (10:43)
[2022-10-31] MEDS ORDERED: predniSONE 10 MG TAB ONE (10:43)
[2022-10-31] MEDS ORDERED: diphenhydrAMINE 50 MG/ML VIAL ONE (11:57)
== END 2022-10-31 12:59 | disposition home or self-care (01) ==
LOC: MADERS 08:44
DX: J01.90 Acute sinusitis, unspecified (principal); J20.9 Acute bronchitis, unspecified; F17.210 Nicotine dependence, cigarettes, uncomplicated; Z20.822 Contact with and (suspected) exposure to COVID-19; Z79.899 Other long term (current) drug therapy
CPT/HCPCS: 87804; 96372; 99283; J1200; J7512; U0003; U0005

== ENCOUNTER 2024-03-28 20:05 | Emergency (ER) | payer OTHER ==
[~2024-03-28 20:05] MED LIST: Iopamidol 370 76% 100 ML VIAL ONE
[2024-03-28] MEDS ORDERED: Dicyclomine 20 MG/2 ML VIAL ONE (20:30)
[2024-03-28] MEDS ORDERED: Sodium Chloride 0.9% 1,000 ML ONE (20:30)
[2024-03-28] MEDS ORDERED: Ondansetron PF 4 MG/2 ML Vial ONE (20:30)
[2024-03-28 20:36] LABS: Hematocrit 53.9 % (36.0-47.0); Hemoglobin 15.5 g/dL (12.0-16.0); MDiff Complete? YES; Mean Corpuscular HGB CONC 28.7 g/dL (32.0-36.0); Mean Corpuscular Hemoglobin 25.4 pg (27.0-31.0); Mean Corpuscular Volume 88.6 fl (78.0-98.0); Mean Platelet Volume 7.5 fL (7.4-10.4); Platelet Count 242 10x3/uL (130-400); RBC Distribution Width 13.6 % (11.5-14.5); Red Blood Cell (RBC) Count 6.09 mill/uL (4.20-5.40); White Blood Cell (WBC) Count 10.2 10x3/uL (4.8-10.8)
[2024-03-28 20:37] LABS: Eosinophils 2 % (0-10); Lymphocytes 28 % (21-51); Monocytes 5 % (0-10); Neutrophil 65 % (42-75)
[2024-03-28 20:55] LABS: ALT (SGPT) 19 U/L (8-55); AST (SGOT) 17 U/L (5-34); Albumin 4.1 g/dL (3.4-4.8); Alkaline Phosphatase 96 U/L (40-110); Anion Gap 16 mmol/L (10-20); BUN (Urea Nitrogen) 8 mg/dL (9.8-20.1); Bilirubin, Total 0.7 mg/dL (0.2-1.2); Calc. Creatinine Clearance 0 mL/min (70-130); Calcium 9.6 mg/dL (7.8-10.44); Carbon Dioxide 27 mmol/L (23-31); Chloride 101 mmol/L (98-107); Estimated GFR 89; Globulin 3.6 g/dL (2.4-3.5); Glucose 116 mg/dL (80-115); Lipase 12 U/L (8-78); Magnesium 1.7 mg/dL (1.6-2.6); Potassium 4.3 mmol/L (3.5-5.1); Protein, Total 7.7 g/dL (5.8-8.1); Sodium 140 mmol/L (136-145)
[2024-03-28 21:27] LABS: Bilirubin Negative (Negative); Blood, Urine Negative (Negative); Clarity Clear (Clear); Glucose, Urine (Dipstick) Negative (Negative); Ketone, Urine Negative (Negative); Leukocyte Trace (Negative); Nitrite Negative (Negative); Protein, Urine (Dipstick) 30 mg/dL (Neg-Trace); pH, Urine 7.5 (5.0-9.0)
[2024-03-28 21:35] LABS: Bacteria/HPF Rare-Few HPF (None Seen); CAUTI Indications for Culture Pelvic or flank pain; RBC/HPF None Seen HPF (0-3); Squamous Epithelial 0-3 HPF (0-3); WBC/HPF 0-3 HPF (0-3)
[2024-03-28 21:37] LABS: Urine Culture Reflex No No
== END 2024-03-28 22:18 | disposition home or self-care (01) ==
LOC: MADERS 20:05
DX: K29.70 Gastritis, unspecified, without bleeding (principal); F17.210 Nicotine dependence, cigarettes, uncomplicated
CPT/HCPCS: 74177; 80053; 81001; 83605; 83690; 83735; 85025; 94760; 96361; 96372; 96374; J2405; J7050; Q9967